=== PATIENT | male | born 2000 | race African-American/Black ===

== ENCOUNTER 2023-01-20 21:29 | Emergency (ER) | payer OTHER ==
[2023-01-20 21:57] VITALS: BP 132/85; PULSE 108; RESP 20; TEMP 97.6
--- NOTE | 2023-01-20 22:07 | ED ---
General Adult HPI - General Source: patient, RN notes reviewed Mode of arrival: ambulatory Limitations: no limitations <Kristi Zhou - Last Filed: 01/20/23 22:06> <Andrey Michel - Last Filed: 01/21/23 03:09> - General Chief complaint: Chest Pain Stated complaint: Chest pain/Congestion Time Seen by Provider: 01/20/23 22:06 - History of Present Illness Initial comments: patient is a 22-year-old male presented ER chief complaint of URI symptoms. Patient reports chest congestion and coughing up phlegm. Patient denies any fevers or chills. (Kristi Zhou) - Related Data Previous Rx's Medication Instructions Recorded Promethazine 6.25MG/5Ml [Phenergan 5 ml PO Q4HR PRN #120 ml 01/21/23 Syrup] Allergies Allergy/AdvReac Type Severity Reaction Status Date / Time No Known Allergies Allergy Verified 01/20/23 21:49 Review of Systems ROS Other: All systems not noted in ROS Statement are negative. <Kristi Zhou - Last Filed: 01/20/23 22:06> ROS Other: All systems not noted in ROS Statement are negative. <Andrey Michel - Last Filed: 01/21/23 03:09> ROS Statement: Those systems with pertinent positive or pertinent negative responses have been documented in the HPI. Past Medical History Additional Past Medical History / Comment(s): CDLS History of Any Multi-Drug Resistant Organisms: None Reported Past Surgical History: No Surgical Hx Reported Past Psychological History: Anxiety Smoking Status: Never smoker Past Alcohol Use History: None Reported Past Drug Use History: None Reported <Kristi Zhou - Last Filed: 01/20/23 22:06> General Exam Limitations: no limitations <Kristi Zhou - Last Filed: 01/20/23 22:06> - General Exam Comments Initial Comments: Visual Physical Exam Vital signs reviewed General: Well-appearing, nontoxic, no acute distress. Head: Normocephalic, atraumatic Eyes: PERRLA, EOMI ENT: Airway patent Chest: Nonlabored breathing Skin: No visual rash, normal skin tone Neuro: Alert and oriented 3 Musculoskeletal: No gross abnormalities (Kristi Zhou) Course Vital Signs 01/20/23 21:45 Temperature 97.6 F Pulse Rate 108 H Respiratory 20 Rate Blood Pressure 132/85 O2 Sat by Pulse 98 Oximetry EKG Findings - EKG Results: EKG: interpreted by ERMD, sinus rhythm, normal axis EKG shows: tachycardia (Rate 116 bpm) - Blocks, [place], Hypertrophy, ST Abn: AV and intraventricular conduction: right bundle branch block (fixed/intermittent, complete/incomplete) (Complete) <Andrey Michel - Last Filed: 01/21/23 03:09> Medical Decision Making <Kristi Zhou - Last Filed: 01/20/23 22:06> - Medical Decision Making I performed the quick note portion of the exam. Electronically signed by Kristi Zhou PA-C (Kristi Zhou) - Lab Data Lab Results 01/20/23 Range/Units 21:55 Influenza Type A (PCR) Not Detected (Not Detectd) Influenza Type B (PCR) Not Detected (Not Detectd) RSV (PCR) Not Detected (Not Detectd) SARS-CoV-2 (PCR) Not Detected (Not Detectd) Disposition <Kristi Zhou - Last Filed: 01/20/23 22:06> Is patient prescribed a controlled substance at d/c from ED?: No <Andrey Michel - Last Filed: 01/21/23 03:09> Clinical Impression: Upper respiratory infection Disposition: HOME SELF-CARE Condition: Good Instructions (If sedation given, give patient instructions): Upper Respiratory Infection (ED) Prescriptions: Promethazine 6.25MG/5Ml [Phenergan Syrup] 5 ml PO Q4HR PRN #120 ml PRN Reason: Cough Referrals: None,Stated [Primary Care Provider] - 1-2 days
--- NOTE | 2023-01-21 02:19 | XR ---
EXAM: XR Chest, 2 Views CLINICAL HISTORY: ITS.REASON XR Reason: congestion TECHNIQUE: Frontal and lateral views of the chest. COMPARISON: No relevant prior studies available. FINDINGS: Lungs: No consolidation or mass. Pleural space: No effusion. Heart: No cardiomegaly. Bones/joints: No acute findings. IMPRESSION: No acute cardiopulmonary process.
[2023-01-21] MEDS ORDERED: PROMETHAZINE HCL 6.25 MG/5 ML CUP PO STA (03:11)
== END 2023-01-21 03:38 | disposition home or self-care (01) ==
LOC: EC 21:29
DX: J06.9 Acute upper respiratory infection, unspecified (principal); Z86.59 Personal history of other mental and behavioral disorders; Z20.822 Contact with and (suspected) exposure to COVID-19
CPT/HCPCS: 71046; 87636; 93005; 99285

== ENCOUNTER 2023-09-02 15:44 | Inpatient (IN) | payer OTHER ==
--- NOTE | 2023-09-02 16:48 | ED ---
General Adult HPI - General Chief complaint: Nausea/Vomiting/Diarrhea Stated complaint: poss infection Time Seen by Provider: 09/02/23 16:22 Source: patient, family, RN notes reviewed Mode of arrival: ambulatory - History of Present Illness Initial comments: 23 year old male presents to the emergency department sent in by dermatology for evaluation. Patient states that he received phototherapy today and following this, patient states that he had burning in his skin. He also reports nausea with an episode of vomiting. Patient states that he has been receiving phototherapy for about 1.5 months. He states that his last treatment about 2 weeks ago he had a similar experience but nothing prior to this. He reports that his symptoms have improved now. Denies fever, chills. Admits to shaking after phototherapy. - Related Data Previous Rx's Medication Instructions Recorded Acetaminophen Tab [Tylenol] 650 mg PO Q6HR PRN tab 09/04/23 Cephalexin [Keflex] 500 mg PO Q6HR 7 Days #14 cap 09/04/23 Doxycycline [Vibramycin] 100 mg PO BID 7 Days #14 capsule 09/04/23 Ibuprofen [Motrin] 400 mg PO Q6HR PRN tab 09/04/23 Allergies Allergy/AdvReac Type Severity Reaction Status Date / Time No Known Allergies Allergy Verified 09/02/23 17:34 Review of Systems ROS Statement: Those systems with pertinent positive or pertinent negative responses have been documented in the HPI. ROS Other: All systems not noted in ROS Statement are negative. Past Medical History Additional Past Medical History / Comment(s): CDLS History of Any Multi-Drug Resistant Organisms: None Reported Past Surgical History: No Surgical Hx Reported Past Psychological History: Anxiety Smoking Status: Never smoker Past Alcohol Use History: None Reported Past Drug Use History: None Reported General Exam Limitations: no limitations General appearance: alert, in no apparent distress Head exam: Present: atraumatic, normocephalic, normal inspection Eye exam: Present: normal appearance, PERRL, EOMI. Absent: scleral icterus, conjunctival injection, periorbital swelling ENT exam: Present: normal exam, mucous membranes moist Neck exam: Present: normal inspection. Absent: tenderness, meningismus, lymphadenopathy Respiratory exam: Present: normal lung sounds bilaterally. Absent: respiratory distress, wheezes, rales, rhonchi, stridor Cardiovascular Exam: Present: normal rhythm, tachycardia, normal heart sounds. Absent: systolic murmur, diastolic murmur, rubs, gallop, clicks GI/Abdominal exam: Present: soft. Absent: distended, tenderness, guarding, rebound, rigid Extremities exam: Present: full ROM, normal capillary refill, pedal edema. Absent: tenderness, joint swelling, calf tenderness Back exam: Present: normal inspection Neurological exam: Present: alert, oriented X3 Psychiatric exam: Present: normal affect, normal mood Skin exam: Present: warm, dry, other (diffuse rash throughout patients body, psoriatic ). Absent: normal color Course Vital Signs 09/02/23 09/02/23 09/02/23 15:56 17:26 21:11 Temperature 98.4 F Pulse Rate 133 H 125 H 118 H Pulse Rate [ Left] Respiratory 20 16 18 Rate Blood Pressure 98/62 128/78 117/69 Blood Pressure [Left Arm] O2 Sat by Pulse 99 100 100 Oximetry 09/03/23 09/03/23 09/03/23 00:05 00:20 01:45 Temperature 100.9 F H 99.1 F Pulse Rate 124 H 111 H 108 H Pulse Rate [ Left] Respiratory 20 18 17 Rate Blood Pressure 103/65 105/60 103/65 Blood Pressure [Left Arm] O2 Sat by Pulse 100 100 100 Oximetry 09/03/23 09/03/23 09/03/23 04:00 05:00 06:00 Temperature 98.9 F Pulse Rate 100 93 96 Pulse Rate [ Left] Respiratory 16 18 16 Rate Blood Pressure 126/64 128/68 123/61 Blood Pressure [Left Arm] O2 Sat by Pulse 98 94 L 97 Oximetry 09/03/23 09/03/23 09/03/23 08:00 08:03 08:42 Temperature 98.5 F Pulse Rate 104 H 102 H Pulse Rate [ 113 H Left] Respiratory 17 18 18 Rate Blood Pressure 126/58 122/70 Blood Pressure 126/60 [Left Arm] O2 Sat by Pulse 93 L 98 97 Oximetry Medical Decision Making - Medical Decision Making Was pt. sent in by a medical professional or institution (, PA, SALON SALES CONSULTANT, urgent care, hospital, or detention...) When possible be specific @ -[Dermatology] Did you speak to anyone other than the patient for history (EMS, parent, family, police, friend...)? What history was obtained from this source @ -[Patients mother provided some of the history for this patient] Did you review nursing and triage notes (agree or disagree)? Why? @ -[I reviewed and agree with nursing and triage notes] Were old charts reviewed (outside hosp., previous admission, EMS record, old EKG, old radiological studies, urgent care reports/EKG's, detention records)? Report findings @ -[Reviewed note from SALON SALES CONSULTANT at Dr. Block's office] Differential Diagnosis (chest pain, altered mental status, abdominal pain women, abdominal pain men, vaginal bleeding, weakness, fever, dyspnea, syncope, heada edith, dizziness, GI bleed, back pain, seizure, CVA, palpatations, mental health, musculoskeletal)? @ -[Differential Weakness: Hypoglycemia, shock, sepsis, hyponatremia, anemia, infection, DE, ETOH, adverse medicine reaction, overdose, stroke, this is not meant to be an all-inclusive list. ] EKG interpreted by me (3pts min.). @ -[ekg at 1951 shows sinus tachycardia, rate 116, ID 127, QRS 88, QT/QTc 320/389 ] X-rays interpreted by me (1pt min.). @ -[None done] CT interpreted by me (1pt min.). @ -[None done] U/S interpreted by me (1pt. min.). @ -[None done] What testing was considered but not performed or refused? (CT, X-rays, U/S, labs)? Why? @ -[None] What meds were considered but not given or refused? Why? @ -[None] Did you discuss the management of the patient with other professionals (professionals i.e. , PA, SALON SALES CONSULTANT, lab, RT, psych nurse, social service worker, milk sampler, teacher, tactical debriefer officer, outsole caser)? Give summary @ -Case discussed with Dr. Watts who is accepting of the admission. Was smoking cessation discussed for >3mins.? @ -[No] Was critical care preformed (if so, how long)? @ -[No] Were there social determinants of health that impacted care today? How? (Homelessness, low income, unemployed, alcoholism, drug addiction, transportation, low edu. Level, literacy, decrease access to med. care, mcc, rehab)? @ -[No] Was there de-escalation of care discussed even if they declined (Discuss DNR or withdrawal of care, Hospice)? DNR status @ -[No] What co-morbidities impacted this encounter? (DM, HTN, Smoking, COPD, CAD, Cancer, CVA, ARF, Chemo, Hep., AIDS, mental health diagnosis, sleep apnea, morbid obesity)? @ -[None] Was patient admitted / discharged? Hospital course, mention meds given and route, prescriptions, significant lab abnormalities, going to OR and other pertinent info. @ -[admitted. Patient presented to the emergency department sent in by dia matology. ] Undiagnosed new problem with uncertain prognosis? @ -[No] Drug Therapy requiring intensive monitoring for toxicity (Heparin, Nitro, Insulin, Cardizem)? @ -[No] Were any procedures done? @ -[No] Diagnosis/symptom? @ -celllulitis Acute, or Chronic, or Acute on Chronic? @ -acute Uncomplicated (without systemic symptoms) or Complicated (systemic symptoms)? @ -uncomplicated Side effects of treatment? @ -[No] Exacerbation, Progression, or Severe Exacerbation? @ -[No] Poses a threat to life or bodily function? How? (Chest pain, [place], DE, pneumonia, PE, COPD, DKA, ARF, appy, cholecystitis, CVA, Diverticulitis, Homicidal, Suicidal, threat to staff... and all critical care pts) @ -[No] - Lab Data Result diagrams: 09/03/23 05:44 09/04/23 06:24 Lab Results 09/02/23 09/02/23 09/02/23 Range/Units 16:47 16:47 16:47 WBC 14.1 H (3.8-10.6) k/uL RBC 5.39 (4.30-5.90) m/uL Hgb 14.7 (13.0-17.5) gm/dL Hct 45.7 (39.0-53.0) % MCV 84.8 (80.0-100.0) fL MCH 27.2 (25.0-35.0) pg MCHC 32.1 (31.0-37.0) g/dL RDW 14.0 (11.5-15.5) % Plt Count 434 (150-450) k/uL MPV 7.0 Neutrophils % 85 % Lymphocytes % 10 % Monocytes % 2 % Eosinophils % 2 % Basophils % 0 % Neutrophils # 12.0 H (1.3-7.7) k/uL Lymphocytes # 1.4 (1.0-4.8) k/uL Monocytes # 0.3 (0-1.0) k/uL Eosinophils # 0.3 (0-0.7) k/uL Basophils # 0.1 (0-0.2) k/uL Hypochromasia Slight PT 11.2 (10.0-12.5) sec INR 1.0 (<1.2) APTT 22.6 (22.0-30.0) sec Sodium (137-145) mmol/L Potassium (3.5-5.1) mmol/L Chloride (98-107) mmol/L Carbon Dioxide (22-30) mmol/L Anion Gap mmol/L BUN (9-20) mg/dL Creatinine (0.66-1.25) mg/dL Est GFR (CKD-EPI)AfAm (>60 ml/min/1.73 sqM) Est GFR (CKD-EPI)NonAf (>60 ml/min/1.73 sqM) Glucose (74-99) mg/dL Estimated Ave Glu mg/dL mg/dL Hemoglobin A1c (<=6.0) % Lactic Ac Sepsis Rflx Plasma Lactic Acid Gilberto (0.7-2.0) mmol/L Calcium (8.4-10.2) mg/dL Magnesium (1.6-2.3) mg/dL Total Bilirubin (0.2-1.3) mg/dL AST (17-59) U/L ALT (4-49) U/L Alkaline Phosphatase (38-126) U/L Total Protein (6.3-8.2) g/dL Albumin (3.5-5.0) g/dL Urine Color Yellow Urine Appearance Clear (Clear) Urine pH 6.0 (5.0-8.0) Ur Specific [place] 1.029 (1.001-1.035) Urine Protein Trace H (Negative) Urine Glucose (UA) Negative (Negative) Urine Ketones Negative (Negative) Urine Blood Negative (Negative) Urine Nitrite Negative (Negative) Urine Bilirubin Negative (Negative) Urine Urobilinogen <2.0 (<2.0) mg/dL Ur Leukocyte Esterase Negative (Negative) Hep Bs Antigen (Nonreactive) Hep Bs Antibody (Negative) Hep Bs Antibody, Quant mIU/mL Hep B Core Total Ab (Nonreactive) Hep C IgG Ab (Nonreactive) TB Test (QFT) Gold Plus (Negative) 09/02/23 09/02/23 09/02/23 Range/Units 16:47 16:47 16:47 WBC (3.8-10.6) k/uL RBC (4.30-5.90) m/uL Hgb (13.0-17.5) gm/dL Hct (39.0-53.0) % MCV (80.0-100.0) fL MCH (25.0-35.0) pg MCHC (31.0-37.0) g/dL RDW (11.5-15.5) % Plt Count (150-450) k/uL MPV Neutrophils % % Lymphocytes % % Monocytes % % Eosinophils % % Basophils % % Neutrophils # (1.3-7.7) k/uL Lymphocytes # (1.0-4.8) k/uL Monocytes # (0-1.0) k/uL Eosinophils # (0-0.7) k/uL Basophils # (0-0.2) k/uL Hypochromasia PT (10.0-12.5) sec INR (<1.2) APTT (22.0-30.0) sec Sodium 136 L (137-145) mmol/L Potassium 4.1 (3.5-5.1) mmol/L Chloride 101 (98-107) mmol/L Carbon Dioxide 26 (22-30) mmol/L Anion Gap 9 mmol/L BUN 10 (9-20) mg/dL Creatinine 1.02 (0.66-1.25) mg/dL Est GFR (CKD-EPI)AfAm >90 (>60 ml/min/1.73 sqM) Est GFR (CKD-EPI)NonAf >90 (>60 ml/min/1.73 sqM) Glucose 104 H (74-99) mg/dL Estimated Ave Glu mg/dL mg/dL Hemoglobin A1c (<=6.0) % Lactic Ac Sepsis Rflx Plasma Lactic Acid Gilberto 3.1 H* (0.7-2.0) mmol/L Calcium 9.7 (8.4-10.2) mg/dL Magnesium 1.1 L (1.6-2.3) mg/dL Total Bilirubin 1.0 (0.2-1.3) mg/dL AST 32 (17-59) U/L ALT 16 (4-49) U/L Alkaline Phosphatase 66 (38-126) U/L Total Protein 7.2 (6.3-8.2) g/dL Albumin 3.9 (3.5-5.0) g/dL Urine Color Urine Appearance (Clear) Urine pH (5.0-8.0) Ur Specific [place] (1.001-1.035) Urine Protein (Negative) Urine Glucose (UA) (Negative) Urine Ketones (Negative) Urine Blood (Negative) Urine Nitrite (Negative) Urine Bilirubin (Negative) Urine Urobilinogen (<2.0) mg/dL Ur Leukocyte Esterase (Negative) Hep Bs Antigen Nonreactive (Nonreactive) Hep Bs Antibody (Negative) Hep Bs Antibody, Quant 3.5 mIU/mL Hep B Core Total Ab Nonreactive (Nonreactive) Hep C IgG Ab Nonreactive (Nonreactive) TB Test (QFT) Gold Plus (Negative) 09/02/23 09/02/23 09/02/23 Range/Units 17:05 17:32 17:34 WBC (3.8-10.6) k/uL RBC (4.30-5.90) m/uL Hgb (13.0-17.5) gm/dL Hct (39.0-53.0) % MCV (80.0-100.0) fL MCH (25.0-35.0) pg MCHC (31.0-37.0) g/dL RDW (11.5-15.5) % Plt Count (150-450) k/uL MPV Neutrophils % % Lymphocytes % % Monocytes % % Eosinophils % % Basophils % % Neutrophils # (1.3-7.7) k/uL Lymphocytes # (1.0-4.8) k/uL Monocytes # (0-1.0) k/uL Eosinophils # (0-0.7) k/uL Basophils # (0-0.2) k/uL Hypochromasia PT (10.0-12.5) sec INR (<1.2) APTT (22.0-30.0) sec Sodium (137-145) mmol/L Potassium (3.5-5.1) mmol/L Chloride (98-107) mmol/L Carbon Dioxide (22-30) mmol/L Anion Gap mmol/L BUN (9-20) mg/dL Creatinine (0.66-1.25) mg/dL Est GFR (CKD-EPI)AfAm (>60 ml/min/1.73 sqM) Est GFR (CKD-EPI)NonAf (>60 ml/min/1.73 sqM) Glucose (74-99) mg/dL Estimated Ave Glu mg/dL 111 mg/dL Hemoglobin A1c 5.5 (<=6.0) % Lactic Ac Sepsis Rflx Y Plasma Lactic Acid Gilberto (0.7-2.0) mmol/L Calcium (8.4-10.2) mg/dL Magnesium (1.6-2.3) mg/dL Total Bilirubin (0.2-1.3) mg/dL AST (17-59) U/L ALT (4-49) U/L Alkaline Phosphatase (38-126) U/L Total Protein (6.3-8.2) g/dL Albumin (3.5-5.0) g/dL Urine Color Urine Appearance (Clear) Urine pH (5.0-8.0) Ur Specific [place] (1.001-1.035) Urine Protein (Negative) Urine Glucose (UA) (Negative) Urine Ketones (Negative) Urine Blood (Negative) Urine Nitrite (Negative) Urine Bilirubin (Negative) Urine Urobilinogen (<2.0) mg/dL Ur Leukocyte Esterase (Negative) Hep Bs Antigen (Nonreactive) Hep Bs Antibody (Negative) Hep Bs Antibody, Quant mIU/mL Hep B Core Total Ab (Nonreactive) Hep C IgG Ab (Nonreactive) TB Test (QFT) Gold Plus Negative (Negative) 09/02/23 09/02/23 Range/Units 19:45 20:26 WBC (3.8-10.6) k/uL RBC (4.30-5.90) m/uL Hgb (13.0-17.5) gm/dL Hct (39.0-53.0) % MCV (80.0-100.0) fL MCH (25.0-35.0) pg MCHC (31.0-37.0) g/dL RDW (11.5-15.5) % Plt Count (150-450) k/uL MPV Neutrophils % % Lymphocytes % % Monocytes % % Eosinophils % % Basophils % % Neutrophils # (1.3-7.7) k/uL Lymphocytes # (1.0-4.8) k/uL Monocytes # (0-1.0) k/uL Eosinophils # (0-0.7) k/uL Basophils # (0-0.2) k/uL Hypochromasia PT (10.0-12.5) sec INR (<1.2) APTT (22.0-30.0) sec Sodium (137-145) mmol/L Potassium (3.5-5.1) mmol/L Chloride (98-107) mmol/L Carbon Dioxide (22-30) mmol/L Anion Gap mmol/L BUN (9-20) mg/dL Creatinine (0.66-1.25) mg/dL Est GFR (CKD-EPI)AfAm (>60 ml/min/1.73 sqM) Est GFR (CKD-EPI)NonAf (>60 ml/min/1.73 sqM) Glucose (74-99) mg/dL Estimated Ave Glu mg/dL mg/dL Hemoglobin A1c (<=6.0) % Lactic Ac Sepsis Rflx Y Plasma Lactic Acid Gilberto 2.3 H* (0.7-2.0) mmol/L Calcium (8.4-10.2) mg/dL Magnesium (1.6-2.3) mg/dL Total Bilirubin (0.2-1.3) mg/dL AST (17-59) U/L ALT (4-49) U/L Alkaline Phosphatase (38-126) U/L Total Protein (6.3-8.2) g/dL Albumin (3.5-5.0) g/dL Urine Color Urine Appearance (Clear) Urine pH (5.0-8.0) Ur Specific [place] (1.001-1.035) Urine Protein (Negative) Urine Glucose (UA) (Negative) Urine Ketones (Negative) Urine Blood (Negative) Urine Nitrite (Negative) Urine Bilirubin (Negative) Urine Urobilinogen (<2.0) mg/dL Ur Leukocyte Esterase (Negative) Hep Bs Antigen (Nonreactive) Hep Bs Antibody (Negative) Hep Bs Antibody, Quant mIU/mL Hep B Core Total Ab (Nonreactive) Hep C IgG Ab (Nonreactive) TB Test (QFT) Gold Plus (Negative) Disposition Clinical Impression: Cellulitis, Sepsis Disposition: ADMITTED IP TO THIS HOSP Condition: Stable Is patient prescribed a controlled substance at d/c from ED?: No
[2023-09-02] MEDS: SODIUM CHLORIDE 0.9% 1,000 ML IV STA (17:01)
[2023-09-02 17:17] LABS: Basophils # (A) 0.1 k/uL (0-0.2); Basophils % (A) 0 %; Eosinophils # (A) 0.3 k/uL (0-0.7); Eosinophils % (A) 2 %; HCT 45.7 % (39.0-53.0); HGB 14.7 gm/dL (13.0-17.5); Hypochromasia Slight; Lymphocytes # (A) 1.4 k/uL (1.0-4.8); Lymphocytes % (A) 10 %; MCH 27.2 pg (25.0-35.0); MCHC 32.1 g/dL (31.0-37.0); MCV 84.8 fL (80.0-100.0); Monocytes # (A) 0.3 k/uL (0-1.0); Monocytes % (A) 2 %; Neutrophils % (A) 85 %; Platelet Count 434 k/uL (150-450); RBC 5.39 m/uL (4.30-5.90); WBC 14.1 k/uL (3.8-10.6)
--- NOTE | 2023-09-02 17:22 | XR ---
EXAMINATION TYPE: XR chest 2V DATE OF EXAM: 09/02/2023 5:10 PM CLINICAL INDICATION:Male, 23 years old with history of Weakness; [facility] COMPARISON: Chest radiographs from 01/21/2023 TECHNIQUE: XR chest 2V Frontal view of the chest. FINDINGS: Lungs/Pleura: There is no evidence of pleural effusion, focal consolidation, or pneumothorax. Pulmonary vascularity: Unremarkable. Heart/mediastinum: Cardiomediastinal silhouette is unremarkable. Musculoskeletal: No acute osseous pathology. IMPRESSION: Haziness to the right heart border, patient is rotated and likely positional. No other acute finding. .
[2023-09-02 17:24] LABS: Appearance,Urine Clear (Clear); Bilirubin,Urine Negative (Negative); Blood,Urine Negative (Negative); Color,Urine Yellow; Glucose,Urine (UA) Negative (Negative); Ketones,Urine Negative (Negative); Leukocyte Esterase,Urine Negative (Negative); Nitrite,Urine Negative (Negative); Protein,Urine Trace (Negative); Specific Gravity,Urine 1.029 (1.001-1.035); Urobilinogen,Urine <2.0 mg/dL (<2.0)
[2023-09-02 17:31] LABS: Partial Thromboplastin Time 22.6 sec (22.0-30.0); Prothrombin Time 11.2 sec (10.0-12.5)
[2023-09-02 17:32] LABS: ALT 16 U/L (4-49); AST 32 U/L (17-59); African American GFR (CKD) >90 (>60 ml/min/1.73 sqM); Albumin 3.9 g/dL (3.5-5.0); Alkaline Phosphatase 66 U/L (38-126); Anion Gap 9 mmol/L; Blood Urea Nitrogen 10 mg/dL (9-20); Calcium 9.7 mg/dL (8.4-10.2); Carbon Dioxide 26 mmol/L (22-30); Chloride 101 mmol/L (98-107); Glucose 104 mg/dL (74-99); Magnesium 1.1 mg/dL (1.6-2.3); Non-African American GFR(CKD) >90 (>60 ml/min/1.73 sqM); Potassium 4.1 mmol/L (3.5-5.1); Sodium 136 mmol/L (137-145); Total Protein 7.2 g/dL (6.3-8.2)
[2023-09-02] MEDS ORDERED: Magnesium Replacement Protocol 1 EACH MISC MISCELLANE PRN (17:34)
[2023-09-02] MEDS: MAGNESIUM SULFATE-D5W PMX 1 GM in DEXTROSE/WATER 1 100ML.BAG IVPB SCH (17:53)
[2023-09-02] MEDS ORDERED: VANCOMYCIN IV PER PHARMACY 1 EACH MISC MISCELLANE PRN (18:02)
[2023-09-02] MEDS: SODIUM CHLORIDE 0.9% 1,000 ML IV ONE (18:38)
[2023-09-02] MEDS: VANCOMYCIN 1,500 MG in SODIUM CHLORIDE 0.9% 500 ML 500 ML IVPB ONE (18:57)
[2023-09-02] MEDS ORDERED: IBUPROFEN 400 MG TAB PO PRN (20:27)
[2023-09-02] MEDS ORDERED: ACETAMINOPHEN TAB 325 MG TAB PO PRN (20:27)
[2023-09-02] MEDS ORDERED: NALOXONE 0.4 MG/ML 1 ML VIAL IV PRN (20:27)
[2023-09-02] MEDS: SODIUM CHLORIDE 0.9% 1,000 ML IV SCH (20:32)
--- NOTE | 2023-09-02 23:16 | P.HPIM ---
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 Collateral history is provided by patient's mother. Per mother, patient is unde rgoing phototherapy for erythrodermic psoriasis since 6 weeks after he had a major flareup in March 2023. Phototherapy has been so far effective in treating the flareup. His phototherapy sessions are scheduled on Mondays, Wednesdays and Fridays. Patient states that after he had therapy on Saturday last week he started endorsing fever, chills and a burning sensation of the skin. He subsequently missed his Saturday and Saturday sessions last week since he was not " feeling well". Patient experienced similar symptoms after getting phototherapy session today. He also reported nausea with an episode of vomiting which was nonbloody. 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 At the time of the interview, patient reports mild chills, but no fever. He states that he often get anxious in the clinical setting and his heart rate increases. Patient has diffuse pruritus but this is not more than how he usually feels. He he however admits that whenever he feels more itchy he likes to scratch the area of itchiness which can often result in excoriations. Patient reports no draining of pus or active bleeding site. Denies shortness of headaches, dizziness, shortness of breath, chest pain, abdominal pain, diarrhea or constipation, numbness weakness or tingling in upper and lower extremities. Chest x-ray in the ER shows no evidence of pleural effusion, focal consolidation or pneumothorax. No acute pulmonary processes. EKG in the ER shows sinus tachycardia with heart rate of 116 bpm. ND interval 127 ms. QTc 389, no prolongation noted. Normal R wave progression. Laboratory evaluation shows lactic acid 2.3 (trended down from 3.1), WBC 14.1 with neutrophil count of 12.0, hemoglobin 14.7, hematocrit 45.7, platelet count 434, sodium 136, potassium 4.1, chloride 101, bicarb 26, glucose 104, magnesium 1.1 UA show trace urine protein. Vitals: Tmax 98.4 F, heart rate 118, respiratory rate 18, BP 117/69, O2 saturation 100% on room air. Review of systems: Pertinent positives and negatives as discussed in HPI, a complete review of systems was performed and all other systems are negative. Social history: Tobacco: None Alcohol: None Recreational drugs: None Travel: None Occupation: None Family History: Noncontributory Physical examination: Vital signs reviewed General: non toxic, no distress, appears at stated age, overweight Derm: Dry, thick, itchy raised skin patches covered with a scale on scalp area, behind both ears, on the dorsal surfaces of both elbows and bilateral lower extremities including knees. Multiple areas of circular and streak-like excoriated skin tobar on abdominal area upper and lower extremities. Some patches on the lower surfaces of the left thigh area are erythematous. No site identified with draining pus or active bleeding. Head: atraumatic, normocephalic, symmetric Eyes: EOMI, no lid lag, anicteric sclera, pupils equal round reactive to light ENT: Nose and ears atraumatic Neck: No cervical lymphadenopathy, trachea midline, supple Mouth: no lip lesion, mucus membranes moist Cardiovascular: S1S2 reg, no murmur, positive dorsalis pedis pulse bilateral, no edema Lungs: CTA bilateral, no rhonchi, no rales, no accessory muscle use Abdominal: soft, nontender to palpation, no guarding Ext: muscle strength 5 out of 5 in all 4 extremities grossly, no gross muscle atrophy, no contractures, Neuro: CN II-XI grossly intact, no gross focal neuro deficits Psych: Alert, oriented, appropriate affect Assessment/Plan: 23-year-old male with a history of Del[place] de Diaz syndrome and chronic psoriasis with flareup was sent to the ER by dermatology for evaluation. #sepsis secondary to Suspected cellulitis secondary to erythrodermic and plaque psoriasis WBC 14.1 with neutrophil count of 12.0 Heart rate 118 Respiratory rate 18 Tmax 98.4 F SIRS criteria: 2 points monitor and trend WBC trend lactic acid, currently trending down from 3.1 ---> 2.3 --> 5.6 follow up blood culture Continue with vancomycin, dosing by pharmacy Continue acetaminophen 650 mg p.o. every 6 hours as needed and ibuprofen 400 mg p.o. every 6 hours as needed for pain control Consult infectious disease s/p 2 L normal saline , continue with 130 cc per hour #Sinus tachycardia, likely secondary to infection Continue cardiac monitoring #Hyponatremia, Sodium 136, unable to establish baseline monitor Na level continue with IVF hydration with normal saline at 130 cc per hour #Hyperglycemia Check HbA1c Started on sliding scale short acting insulin #Hypomagnesium Magnesium per protocol as needed Continue monitor magnesium level DVT prophylaxis: Lovenox 40 mg subcu daily The patient is admitted with an anticipated less than 2 midnight stay for evaluation of cellulitis CODE STATUS: Full Discussed with: Patient and mother Anticipated discharge place: Home Past Medical History Additional Past Medical History / Comment(s): CDLS History of Any Multi-Drug Resistant Organisms: None Reported Past Surgical History: No Surgical Hx Reported Past Psychological History: Anxiety Smoking Status: Never smoker Past Alcohol Use History: None Reported Past Drug Use History: None Reported Medications and Allergies Home Medications Medication Instructions Recorded Confirmed Type No Known Home Medications 09/02/23 09/02/23 History Allergies Allergy/AdvReac Type Severity Reaction Status Date / Time No Known Allergies Allergy Verified 09/02/23 17:34 Physical Exam Vitals: Vital Signs Temp Pulse Resp BP Pulse Ox 09/02/23 21:11 118 H 18 117/69 100 09/02/23 17:26 125 H 16 128/78 100 09/02/23 15:56 98.4 F 133 H 20 98/62 99 Intake and Output 09/02/23 09/02/23 09/03/23 14:59 22:59 06:59 Other: Weight 79.379 kg Results CBC & Chem 7: 09/02/23 16:47 09/02/23 16:47 Labs: Abnormal Lab Results - Last 24 Hours (Table) 09/02/23 09/02/23 09/02/23 Range/Units 16:47 16:47 16:47 WBC 14.1 H (3.8-10.6) k/uL Neutrophils # 12.0 H (1.3-7.7) k/uL Sodium 136 L (137-145) mmol/L Glucose 104 H (74-99) mg/dL Plasma Lactic Acid Gilberto (0.7-2.0) mmol/L Magnesium 1.1 L (1.6-2.3) mg/dL Urine Protein Trace H (Negative) 09/02/23 09/02/23 Range/Units 16:47 19:45 WBC (3.8-10.6) k/uL Neutrophils # (1.3-7.7) k/uL Sodium (137-145) mmol/L Glucose (74-99) mg/dL Plasma Lactic Acid Gilberto 3.1 H* 2.3 H* (0.7-2.0) mmol/L Magnesium (1.6-2.3) mg/dL Urine Protein (Negative) Assessment and Plan Assessment: I have seen and evaluated the patient today. I Discussed the case with the resid ent and agree with the resident's findings I edited the assessment and plan as necessary as documented in the resident's note.
[2023-09-03] MEDS: KETOROLAC 15 MG/ML 1 ML VIAL IVP PRN (00:11)
[2023-09-03] MEDS: ENOXAPARIN 40 MG/0.4 ML SYRINGE SQ STA (00:23)
[2023-09-03] MEDS ORDERED: VANCOMYCIN IV PER PHARMACY 1 EACH MISC MISCELLANE PRN (02:19)
[2023-09-03 02:31] LABS: Hepatitis B Surface Antigen Nonreactive (Nonreactive); Hepatitis C IgG Antibody Nonreactive (Nonreactive)
[2023-09-03 03:56] LABS: Hepatitis B Surface AB- Quant 3.5 mIU/mL
[2023-09-03] MEDS: VANCOMYCIN 1,250 MG in SODIUM CHLORIDE 0.9% 250 ML IVPB SCH ×2 (06:51→15:09)
[2023-09-03] MEDS: INSULIN ASPART (NovoLOG) 100 UNIT/ML VIAL SQ SCH (09:09)
--- NOTE | 2023-09-03 14:51 | P.PN ---
Subjective Progress Note Date: 09/03/23 Subjective: Patient seen at bedside. No significant overnight events. Pertinent positives and negatives discussed above, a complete review of systems was preformed and all the other sytems were negative. Vitals Signs Reveiwed. General: non toxic, no distress, appears at stated age, overweight Derm: Dry, thick, itchy raised skin patches covered with a scale on scalp area, behind both ears, on the dorsal surfaces of both elbows and bilateral lower extremities including knees. Multiple areas of circular and streak-like excoriated skin tobar on abdominal area upper and lower extremities. Some patches on the lower surfaces of the left thigh area are erythematous. No site identified with draining pus or active bleeding. Head: atraumatic, normocephalic, symmetric Eyes: EOMI, no lid lag, anicteric sclera, pupils equal round reactive to light ENT: Nose and ears atraumatic Neck: No cervical lymphadenopathy, trachea midline, supple Mouth: no lip lesion, mucus membranes moist Cardiovascular: S1S2 reg, no murmur, positive dorsalis pedis pulse bilateral, no edema Lungs: CTA bilateral, no rhonchi, no rales, no accessory muscle use Abdominal: soft, nontender to palpation, no guarding Ext: muscle strength 5 out of 5 in all 4 extremities grossly, no gross muscle a trophy, no contractures, Neuro: CN II-XI grossly intact, no gross focal neuro deficits Psych: Alert, oriented, appropriate affect Data Reveiwed Today: Patient Labs: Pending labs to for today Imaging: No new imaging Assesment and Plan: Assessment/Plan: 23-year-old male with a history of [place] de Diaz syndrome and chronic psoriasis with flareup was sent to the ER by dermatology for evaluation. Patient is being worked up for sepsis secondary to suspected cellulitis. Sepsis secondary to Suspected cellulitis secondary to erythrodermic and plaque psoriasis Difficult to distinguish potential cellulitis from psoriasis as the psoriasis encapsulate the majority of the lower extremities in particular the right lower extremity where the suspected cellulitis was first seen, will follow-up with ID for further recommendations. WBC 14.1 with neutrophil count of 12.0 Respiratory rate 18 SIRS criteria: Vitals within normal limits, pending new labs today for WBC monitor and trend WBC Lactic acid down trended, now 1.3 Pending preliminary blood culture results Continue vancomycin 1250 mg sodium chloride 0.9% 250 mL IVPB every 8 hours Continue acetaminophen 650 mg p.o. every 6 hours as needed and ibuprofen 400 mg p.o. every 6 hours as needed for pain control Consult infectious disease s/p 2 L normal saline , continue with 130 cc per hour Sinus tachycardia, likely secondary to infection Continue cardiac monitoring Hyponatremia, Sodium 136, unable to establish baseline monitor Na level continue with IVF hydration with normal saline at 130 cc per hour Hyperglycemia Check HbA1c Will continue to monitor glucose (104) on admission Hypomagnesium Magnesium per protocol as needed Continue monitor magnesium level F NS 1000 mL IV 130 MLS per hour E magnesium N regular diet A normally ambulates without assistance at home. DVT ppx: Lovenox 40 SQ Code Status: Full code Anticipated discharge place: Pending clinical course Anticipated discharge time: Pending clinical course I have seen and evaluated the patient today. Discussed with the resident and agree with the residents subjective and objective as documented in the resident's note. The assessment and plan was discussed and outlined as below. Patient reports improvement in erythema. Back to baseline per patient. Sepsis secondary to cellulitis in the setting of plaque psoriasis: Vancomycin dosed per pharmacy. Decrease NS to 75 cc/hr. Telemetry monitoring. ID consulted. Follow BCx. Hyponatremia: IV hydration as above. Repeat labs tomorrow. HypoMag: Status post 4g mag sulfate IV. Repeat labs tomorrow. Objective - Vital Signs Vital signs: Vital Signs Temp 98.9 F 09/03/23 06:00 Pulse 96 09/03/23 06:00 Resp 16 09/03/23 06:00 BP 123/61 09/03/23 06:00 Pulse Ox 97 09/03/23 06:00 FiO2 Intake & Output 09/02/23 09/02/23 09/03/23 06:59 18:59 06:59 Weight 79.379 kg - Labs CBC & Chem 7: 09/02/23 16:47 09/02/23 16:47 Labs: Abnormal Lab Results - Last 24 Hours (Table) 09/02/23 09/02/23 09/02/23 Range/Units 16:47 16:47 16:47 WBC 14.1 H (3.8-10.6) k/uL Neutrophils # 12.0 H (1.3-7.7) k/uL Sodium 136 L (137-145) mmol/L Glucose 104 H (74-99) mg/dL Plasma Lactic Acid Gilberto (0.7-2.0) mmol/L Magnesium 1.1 L (1.6-2.3) mg/dL Urine Protein Trace H (Negative) 09/02/23 09/02/23 09/02/23 Range/Units 16:47 19:45 22:44 WBC (3.8-10.6) k/uL Neutrophils # (1.3-7.7) k/uL Sodium (137-145) mmol/L Glucose (74-99) mg/dL Plasma Lactic Acid Gilberto 3.1 H* 2.3 H* 5.6 H* (0.7-2.0) mmol/L Magnesium (1.6-2.3) mg/dL Urine Protein (Negative) 09/03/23 Range/Units 02:42 WBC (3.8-10.6) k/uL Neutrophils # (1.3-7.7) k/uL Sodium (137-145) mmol/L Glucose (74-99) mg/dL Plasma Lactic Acid Gilberto 2.6 H* (0.7-2.0) mmol/L Magnesium (1.6-2.3) mg/dL Urine Protein (Negative)
[2023-09-03 15:38] LABS: Basophils # (A) 0.1 k/uL (0-0.2); Basophils % (A) 1 %; Eosinophils # (A) 0.3 k/uL (0-0.7); Eosinophils % (A) 2 %; HCT 40.7 % (39.0-53.0); HGB 12.4 gm/dL (13.0-17.5); Hypochromasia Marked; Lymphocytes # (A) 1.3 k/uL (1.0-4.8); Lymphocytes % (A) 11 %; MCH 27.5 pg (25.0-35.0); MCHC 30.5 g/dL (31.0-37.0); Mean Platelet Volume 9.1; Monocytes # (A) 0.5 k/uL (0-1.0); Monocytes % (A) 5 %; Neutrophils # (A) 9.3 k/uL (1.3-7.7); Neutrophils % (A) 80 %; Platelet Count 305 k/uL (150-450); RBC 4.52 m/uL (4.30-5.90); RDW 14.5 % (11.5-15.5); WBC 11.7 k/uL (3.8-10.6)
--- NOTE | 2023-09-03 22:19 | P.CONS ---
History of Present Illness - Reason for Consult Consult date: 09/03/23 Questionable cellulitis, SIRS criteria Requesting physician: Nata De Jesus - Chief Complaint Fever vomiting x 1 day - History of Present Illness Patient is a 23-year-old -[place] male with a past medical history significant for anxiety chronic psoriasis since currently undergoing phototherapy for the erythematous psoriasis for the last 6 weeks which is done on Mondays and Saturday apparently after his therapy on Saturday patient started having a fever chills and a burning sensation to the skin for the same reason the patient skipped his therapy on Saturday and Saturday when the patient went for his symptoms yesterday that is the day of presentation to the hospital patient have similar symptoms of fever burning sensation to the skin and an episode of vomiting patient was subsequent advised to go to the ER for further evaluation patient denies having any headache or URI symptoms denies any chest pain no shortness with occasional cough he was complaining of some abdominal pain to the lower abdominal area which apparently has resolved the patient did have bowel movement and no further vomiting denies any burning or frequency of urine has been complaining of some burning pain to the skin area that seem to have decreased in intensity patient on presentation to the hospital to have fever 100.9 F patient was tachycardic but not hypotensive or hypoxic and no need for supplemental oxygen patient did have a white count of 14.1 which is down to 11.7 creatinine 1.02 lactic acid was 5.6 down to 1.3 urine has been negative hepatitis B and C has been negative patient did have a chest x-ray haziness of the right heart border no acute finding patient has been empirically treated with vancomycin Review of Systems Positive point and negatives has been mentioned in the HPI, complete review of systems was performed and all other systems are negative Past Medical History Additional Past Medical History / Comment(s): CDLS History of Any Multi-Drug Resistant Organisms: None Reported Past Surgical History: No Surgical Hx Reported Past Psychological History: Anxiety Smoking Status: Never smoker Past Alcohol Use History: None Reported Past Drug Use History: None Reported Medications and Allergies Home Medications Medication Instructions Recorded Confirmed Type No Known Home Medications 09/02/23 09/02/23 History Allergies Allergy/AdvReac Type Severity Reaction Status Date / Time No Known Allergies Allergy Verified 09/02/23 17:34 Physical Exam Vitals: Vital Signs Temp Pulse Pulse Pulse Resp BP BP 09/03/23 09:50 108 H 18 09/03/23 08:42 102 H 18 122/70 09/03/23 08:03 104 H 18 126/58 09/03/23 08:00 98.5 F 113 H 17 126/60 09/03/23 06:00 98.9 F 96 16 123/61 09/03/23 05:00 93 18 128/68 09/03/23 04:00 100 16 126/64 09/03/23 01:45 99.1 F 108 H 17 103/65 09/03/23 00:20 111 H 18 105/60 09/03/23 00:05 100.9 F H 124 H 20 103/65 09/02/23 21:11 118 H 18 117/69 09/02/23 17:26 125 H 16 128/78 09/02/23 15:56 98.4 F 133 H 20 98/62 Pulse Ox 09/03/23 09:50 09/03/23 08:42 97 09/03/23 08:03 98 09/03/23 08:00 93 L 09/03/23 06:00 97 09/03/23 05:00 94 L 09/03/23 04:00 98 09/03/23 01:45 100 09/03/23 00:20 100 09/03/23 00:05 100 09/02/23 21:11 100 09/02/23 17:26 100 09/02/23 15:56 99 Intake and Output 09/02/23 09/03/23 09/03/23 22:59 06:59 14:59 Other: Weight 79.379 kg 79.379 kg GENERAL DESCRIPTION: Young male lying in bed, no distress. No tachypnea or acc essory muscle of respiration use. HEENT: Shows Pallor , no scleral icterus. Oral mucous membrane is dry. No pharyngeal erythema or thrush NECK: Trachea central, no thyromegaly. LUNGS: Unlabored breathing. Clear to auscultation anteriorly. No wheeze or crackle. HEART: S1, S2, regular rate and rhythm. No loud murmur ABDOMEN: Soft, no tenderness , EXTREMITIES: No edema of feet. SKIN: Patient did have multiple skin plaques throughout his body from his psoriasis some erythema has been noticed and warmth to the skin NEUROLOGICAL: The patient is awake, alert, oriented x3, mood and affect normal. Results CBC & Chem 7: 09/03/23 05:44 09/02/23 16:47 Labs: Abnormal Lab Results - Last 24 Hours (Table) 09/02/23 09/02/23 09/02/23 Range/Units 16:47 16:47 16:47 WBC 14.1 H (3.8-10.6) k/uL Neutrophils # 12.0 H (1.3-7.7) k/uL Sodium 136 L (137-145) mmol/L Glucose 104 H (74-99) mg/dL Plasma Lactic Acid Gilberto (0.7-2.0) mmol/L Magnesium 1.1 L (1.6-2.3) mg/dL Urine Protein Trace H (Negative) 09/02/23 09/02/23 09/02/23 Range/Units 16:47 19:45 22:44 WBC (3.8-10.6) k/uL Neutrophils # (1.3-7.7) k/uL Sodium (137-145) mmol/L Glucose (74-99) mg/dL Plasma Lactic Acid Gilberto 3.1 H* 2.3 H* 5.6 H* (0.7-2.0) mmol/L Magnesium (1.6-2.3) mg/dL Urine Protein (Negative) 09/03/23 Range/Units 02:42 WBC (3.8-10.6) k/uL Neutrophils # (1.3-7.7) k/uL Sodium (137-145) mmol/L Glucose (74-99) mg/dL Plasma Lactic Acid Gilberto 2.6 H* (0.7-2.0) mmol/L Magnesium (1.6-2.3) mg/dL Urine Protein (Negative) Assessment and Plan (1) Cellulitis Current Visit: Yes Status: Acute Code(s): L03.90 - CELLULITIS, UNSPECIFIED SNOMED Code(s): 944729733 (2) Sepsis Current Visit: Yes Status: Acute Code(s): A41.9 - SEPSIS, UNSPECIFIED ORGANISM SNOMED Code(s): 32796349 Plan: 1patient presented to hospital with sepsis in this patient who did have fever elevated white count and this patient did have history of erythematous psoriasis undergoing phototherapy now presented with burning of the skin did have some erythema and warmth to the skin concerning for cellulitis likely from gram- positive skin harris however the patient also having some abdominal pain and did have an episode of vomiting and also mention constipation underlying abdominal soft mild tenderness noted. 2we will recommend obtaining CT of abdominal pelvis with contrast to rule out any intra-abdominal pathology. 3with the patient fever white respond to vancomycin to continue while waiting for the culture to finalize. Mother at the bedside questions were sought and answered. We will follow on clinical condition and cultures to further adjust medication if needed Thank you for this consultation we will follow the patient along with you Dictation was produced using [employer] dictation software. please excuse any grammatical, word or spelling errors. Time with Patient: Greater than 30
[2023-09-04 06:53] VITALS: BP 115/74; PULSE 96; RESP 16; TEMP 98.2
[2023-09-04] MEDS: IOPAMIDOL CONTRAST (ORAL USE) VIAL PO PRN (09:21)
[2023-09-04] MEDS: VANCOMYCIN TROUGH DUE 1 EACH MISC MISCELLANE ONE (10:15)
[2023-09-04 10:49] LABS: ALT 13 U/L (10-49); AST 21 U/L (14-35); Albumin 3.6 g/dL (3.8-4.9); Albumin/Globulin Ratio 1.29 Ratio (1.60-3.17); Alkaline Phosphatase 61 U/L (41-126); BUN/Creat Ratio 4.73 Ratio (12.00-20.00); Blood Urea Nitrogen 5.2 mg/dL (9.0-27.0); Calcium 8.9 mg/dL (8.7-10.3); Carbon Dioxide 24.5 mmol/L (21.6-31.8); Chloride 106 mmol/L (96-109); Globulin 2.8 g/dL (1.6-3.3); Glucose 97 mg/dL (70-110); Potassium 4.6 mmol/L (3.5-5.5); Sodium 141 mmol/L (135-145); Total Bilirubin 0.4 mg/dL (0.3-1.2); Total Protein 6.4 g/dL (6.2-8.2)
--- NOTE | 2023-09-04 10:58 | CT ---
EXAMINATION TYPE: CT abdomen pelvis w con CT DLP: 784 mGycm, Automated exposure control for dose reduction was used. DATE OF EXAM: 09/04/2023 10:48 AM COMPARISON: None CLINICAL INDICATION:Male, 23 years old with history of Fever abdominal pain and vomiting; Fever, abdo suzy pain, and vomiting. TECHNIQUE: Standard CT of the abdomen and pelvis following the administration of 100 cc of Isovue 3 00 IV contrast material and oral contrast. Coronal and sagittal reformats were performed. FINDINGS: LOWER CHEST: Unremarkable ABDOMEN LIVER: Focal fatty infiltration adjacent to falciform ligament. GALLBLADDER AND BILE DUCTS: Unremarkable. PANCREAS: Unremarkable. SPLEEN: Unremarkable. ADRENAL GLANDS: Unremarkable. KIDNEYS AND URETERS: No evidence of hydronephrosis or renal calculus. The kidneys enhance symmetrical ly. Contrast is demonstrated within both collecting systems on the delayed phase. PELVIS BLADDER: Unremarkable REPRODUCTIVE: Unremarkable. ABDOMEN & PELVIS STOMACH AND BOWEL: Stomach and duodenum are unremarkable. No focal bowel wall thickening or surroundi ng inflammatory changes. Moderate distal colonic stool burden. The appendix is within normal limits. Enteric contrast reaches the proximal colon. No evidence of bowel obstruction. PERITONEUM: No evidence of pneumoperitoneum or free fluid. No evidence for organized fluid collection . VASCULATURE: No evidence of aortic aneurysm. MUSCULOSKELETAL: No acute osseous abnormalities. Multilevel Schmorl's nodes. LYMPH NODES: Bilateral enlarged external iliac chain lymph nodes with largest on the right measuring up to 1.2 cm and largest on the left measuring up to 1.1 cm. Few shotty prominent periaortic lymph no radha are identified. Bilateral enlarged inguinal lymph nodes with largest on the right measuring up to 1.8 cm. Largest on the left measures up to 1.3 cm. SOFT TISSUE/ABDOMINAL WALL: Mild diffuse anasarca. IMPRESSION: 1. Nonspecific enlarged bilateral external iliac chain and inguinal lymph nodes. May be reactive vers us other etiologies. 2. Moderate distal colonic stool burden. 3. No CT evidence for other significant abnormality.
--- NOTE | 2023-09-04 14:07 | P.DS ---
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 Collateral history is provided by patient's mother. Per mother, patient is undergoing phototherapy for erythrodermic psoriasis since 6 weeks after he had a major flareup in March 2023. Phototherapy has been so far effective in treating the flareup. His phototherapy sessions are scheduled on Mondays, Wednesdays and Fridays. Patient states that after he had therapy on Saturday last week he started endorsing fever, chills and a burning sensation of the skin. He subsequently missed his Saturday and Saturday sessions last week since he was not " feeling well". Patient experienced similar symptoms after getting phototherapy session today. He also reported nausea with an episode of vomiting which was nonbloody. In the ED he underwent extensive evaluation. BP 98/62, HR 133, Tmax 100.9F, 100% on RA. CBC, Coag panel, CMP significant for WBC 14.1, Na 136, glu 104. Lactic acid 5.6. Mag 1.1. UA trace protein. Hep panel negative. CXR haziness of the right heart border. EKG sinus tachycardia. Patient was started on Vancomycin, IV hydration and admitted for treatment of cellulitis. ID consulted, recommended CT AP which showed enlarged external iliac lymph nodes. 09/03 Patient was seen and examined. No complaints wanting to go home. ID recomm ended Keflex and Doxycycline x 7 days. Follow up with PCP within 1-[address] Light within 1 week of discharge. General: non toxic, no distress, appears at stated age Derm: warm, dry, psoriatric plaques bilateral lower extremities Head: atraumatic, normocephalic, symmetric Eyes: EOMI, no lid lag, anicteric sclera Mouth: no lip lesion, mucus membranes moist Cardiovascular: S1S2 reg, no murmur Lungs: CTA bilateral, no rhonchi, no rales , no accessory muscle use Ext: no gross muscle atrophy, no edema, no contractures Neuro: no focal neuro deficits Psych: Alert, oriented, appropriate affect Discharge Diagnosis: Sepsis secondary to cellulitis in the setting of plaque psoriasis Hyponatremia HypoMag This complex discharge took 35 minutes to complete. Patient Condition at Discharge: Stable Plan - Discharge Summary Discharge Rx Participant: Yes New Discharge Prescriptions: New Cephalexin [Keflex] 500 mg PO Q6HR 7 Days #14 cap Ibuprofen [Motrin] 400 mg PO Q6HR PRN tab PRN Reason: Mild Pain Or Fever > 100.5 Acetaminophen Tab [Tylenol] 650 mg PO Q6HR PRN tab PRN Reason: Mild Pain Or Fever > 100.5 Doxycycline [Vibramycin] 100 mg PO BID 7 Days #14 capsule Discharge Medication List Acetaminophen Tab [Tylenol] 650 mg PO Q6HR PRN tab 09/04/23 [Rx] Cephalexin [Keflex] 500 mg PO Q6HR 7 Days #14 cap 09/04/23 [Rx] Doxycycline [Vibramycin] 100 mg PO BID 7 Days #14 capsule 09/04/23 [Rx] Ibuprofen [Motrin] 400 mg PO Q6HR PRN tab 09/04/23 [Rx] Follow up Appointment(s)/Referral(s): None,Stated [Primary Care Provider] - 1-2 days Delfin Light MD [STAFF PHYSICIAN] - 1 Week (office will call with appointment time) Patient Instructions/Handouts: Cellulitis (GEN) Activity/Diet/Wound Care/Special Instructions: Follow up with PCP for resolution of external iliac lymphadenopathy seen on CT AP Discharge Disposition: HOME SELF-CARE
[2023-09-04] MEDS ORDERED: VANCOMYCIN 1,250 MG in SODIUM CHLORIDE 0.9% 250 ML IVPB SCH (20:00)
--- NOTE | 2023-09-05 13:13 | P.PN ---
Subjective Progress Note Date: 09/04/23 Principal diagnosis: Reason for follow-up is fever and cellulitis Patient is a 23-year-old -[place] male with a past medical history significant for anxiety chronic psoriasis since currently undergoing phototherapy for the erythematous psoriasis presented to hospital with fever burning of the skin after his phototherapy patient was febrile and has been diagnosed with cellulitis patient did have a CT abdominal pelvis did not show any acute abnormality tissues and large bilateral external iliac chain and inguinal lymph nodes. On today's evaluation that is 09/04/2023, Patient is afebrile patient is currently on room air and denies having any shortness of breath, the patient denies any chest pain or cough, the patient denies any nausea vomiting did not have any abdominal pain and no diarrhea patient mention overall burning to the skin has improved feeling better wants to go home. Patient white count is down to 11.7 creatinine is 1.1 blood culture has been negative Objective - Vital Signs Vital signs: Vital Signs Temp 98.2 F 09/04/23 06:51 Pulse 96 09/04/23 06:51 Resp 16 09/04/23 09:23 BP 115/74 09/04/23 06:51 Pulse Ox 100 09/04/23 06:51 FiO2 Intake & Output 09/03/23 09/04/23 09/04/23 18:59 06:59 18:59 Intake Total 1150 Balance 1150 Weight 79.379 kg Intake: Intake, IV Titration 1150 Amount Sodium Chloride 0.9% 1, 900 000 ml @ 75 mls/hr IV . [id number] KAMALA Rx#:[id number] Vancomycin 1,250 mg In 250 Sodium Chloride 0.9% 250 ml @ 125 mls/hr IVPB Q8H KAMALA Rx#:[id number] Other: # Voids 2 12 1 - Exam GENERAL DESCRIPTION: Young male lying in bed in no distress RESPIRATORY SYSTEM: Unlabored breathing , decreased breath sounds at bases HEART: S1 S2 regular rate and rhythm , ABDOMEN: Soft , no tenderness EXTREMITIES: Bilateral lower extremity with extensive plaque psoriasis no purulent drainage - Labs CBC & Chem 7: 09/03/23 05:44 09/04/23 06:24 Labs: Abnormal Lab Results - Last 24 Hours (Table) 09/03/23 09/04/23 Range/Units 05:44 06:24 WBC 11.7 H (3.8-10.6) k/uL Hgb 12.4 L (13.0-17.5) gm/dL MCHC 30.5 L (31.0-37.0) g/dL Neutrophils # 9.3 H (1.3-7.7) k/uL BUN 5.2 L (9.0-27.0) mg/dL BUN/Creatinine Ratio 4.73 L (12.00-20.00) Ratio Albumin 3.6 L (3.8-4.9) g/dL Albumin/Globulin Ratio 1.29 L (1.60-3.17) Ratio Microbiology - Last 24 Hours (Table) 09/02/23 21:45 Blood Culture - Preliminary Blood 09/02/23 21:30 Blood Culture - Preliminary Blood Assessment and Plan (1) Cellulitis Status: Acute Code(s): L03.90 - CELLULITIS, UNSPECIFIED SNOMED Code(s): 077923172 (2) Sepsis Status: Acute Code(s): A41.9 - SEPSIS, UNSPECIFIED ORGANISM SNOMED Code(s): 81260498 Plan: 1patient presented to hospital with sepsis in this patient who did have fever elevated white count and this patient did have history of erythematous psoriasis undergoing phototherapy now presented with burning of the skin did have some erythema and warmth to the skin concerning for cellulitis likely from gram- positive skin harris however the patient also having some abdominal pain and did have an episode of vomiting and also mention constipation underlying abdominal soft mild tenderness noted. 2patient did have CT of abdominal pelvis with contrast did not show any intra- abdominal pathology however enlarged bilateral inguinal lymph nodes more likely related to his underlying cellulitis. 3patient seem to have shown clinical movements wants to go home we will recommend a 10-day course of oral doxycycline and Keflex on discharge this was discussed with admitting team working on discharge Dictation was produced using [employer] dictation software. please excuse any grammatical, word or spelling errors. Time with Patient: Less than 30
== END 2023-09-04 13:20 | disposition home or self-care (01) | DRG 720 ==
LOC: EC 15:44 → 4SSUR 20:28 → 3SCARD 09-03 00:05 → 4SSUR 09-03 07:48
PROVIDERS: ADMIT Internal Medicine; ATTEND Internal Medicine
DX: A41.9 Sepsis, unspecified organism (principal); Q87.19 Other congenital malformation syndromes predominantly associated with short stature; E87.1 Hypo-osmolality and hyponatremia; L40.0 Psoriasis vulgaris; E83.42 Hypomagnesemia; L40.8 Other psoriasis; L29.9 Pruritus, unspecified; L03.115 Cellulitis of right lower limb; R73.9 Hyperglycemia, unspecified
CPT/HCPCS: 36415; 71046; 74177; 80053; 80202; 81003; 83036; 83605; 83735; 85025; 85610; 85730; 86480; 86704; 86706; 86803; 87040; 87340; 93005; 96361; 96365; 96366; 96368; 96375; 99285

== ENCOUNTER 2024-05-30 12:12 | Emergency (ER) | payer OTHER ==
[2024-05-30 12:23] VITALS: RESP 17
--- NOTE | 2024-05-30 12:53 | ED ---
Wound/Laceration HPI - General Chief Complaint: Wound/Laceration Stated Complaint: R Hand Lac Time Seen by Provider: 05/30/24 12:26 Source: patient, RN notes reviewed Mode of arrival: ambulatory Limitations: no limitations - History of Present Illness Initial Comments: 24-year-old male presenting to the emergency department for complaint of a right second digit laceration. Patient states that he cut his finger while opening a can of soup. He denies paresthesias loss of range of motion. He is unaware when his last tetanus vaccination was. No other acute complaints at this time. - Related Data Previous Rx's Medication Instructions Recorded Acetaminophen Tab [Tylenol] 650 mg PO Q6HR PRN tab 09/04/23 Cephalexin [Keflex] 500 mg PO Q6HR 7 Days #14 cap 09/04/23 Doxycycline [Vibramycin] 100 mg PO BID 7 Days #14 capsule 09/04/23 Ibuprofen [Motrin] 400 mg PO Q6HR PRN tab 09/04/23 Cephalexin [Keflex] 500 mg PO Q6HR #40 cap 05/30/24 Allergies Allergy/AdvReac Type Severity Reaction Status Date / Time No Known Allergies Allergy Verified 05/30/24 12:23 Review of Systems ROS Statement: Those systems with pertinent positive or pertinent negative responses have been documented in the HPI. ROS Other: All systems not noted in ROS Statement are negative. Past Medical History Additional Past Medical History / Comment(s): CDLS History of Any Multi-Drug Resistant Organisms: None Reported Past Surgical History: No Surgical Hx Reported Past Psychological History: Anxiety Smoking Status: Never smoker Past Alcohol Use History: None Reported Past Drug Use History: None Reported General Exam Limitations: no limitations General appearance: alert, in no apparent distress ENT exam: Present: normal exam, mucous membranes moist Neck exam: Present: normal inspection. Absent: tenderness, meningismus, lymphadenopathy Respiratory exam: Present: normal lung sounds bilaterally. Absent: respiratory distress, wheezes, rales, rhonchi, stridor Cardiovascular Exam: Present: regular rate, normal rhythm, normal heart sounds. Absent: systolic murmur, diastolic murmur, rubs, gallop, clicks GI/Abdominal exam: Present: soft, normal bowel sounds. Absent: distended, tenderness, guarding, rebound, rigid Right Hand Wrist exam: Present: laceration (Second digit 1 inch x 0.25 inch skin avulsion.) Neuro motor exam: Present: wrist extension intact, thumb opposition intact, thumb IP flexion intact Vascular: Present: normal capillary refill, radial pulse (2+). Absent: vascular compromise Neurological exam: Present: alert, oriented X3, CN II-XII intact Course Vital Signs 05/30/24 12:19 Temperature 97.3 F L Pulse Rate 104 H Respiratory 17 Rate Blood Pressure 139/91 O2 Sat by Pulse 97 Oximetry Medical Decision Making - Medical Decision Making Was pt. sent in by a medical professional or institution (, [facility], [employer]ER, urgent care, hospital, or intermediate...) When possible be specific @ -No Did you speak to anyone other than the patient for history (EMS, parent, family, police, friend...)? What history was obtained from this source @ -No Did you review nursing and triage notes (agree or disagree)? Why? @ -I reviewed and agree with nursing and triage notes Were old charts reviewed (outside hosp., previous admission, EMS record, old EKG, old radiological studies, urgent care reports/EKG's, intermediate records)? Report findings @ -No old charts were reviewed Differential Diagnosis (chest pain, altered mental status, abdominal pain women, abdominal pain men, vaginal bleeding, weakness, fever, dyspnea, syncope, headache, dizziness, GI bleed, back pain, seizure, CVA, palpatations, mental health, musculoskeletal)? @ -Skin avulsion, laceration, this list is not all inclusive EKG interpreted by me (3pts min.). @ -None X-rays interpreted by me (1pt min.). @ -None done CT interpreted by me (1pt min.). @ -None done U/S interpreted by me (1pt. min.). @ -None done What testing was considered but not performed or refused? (CT, X-rays, U/S, labs)? Why? @ -None What meds were considered but not given or refused? Why? @ -None Did you discuss the management of the patient with other professionals (professionals i.e. IZZY Maxwell, [employer] DES[employer]ER, lab, RT, psych nurse, rn social services, marketing technology specialist, teacher, airport operations officer, case loader operator)? Give summary @ -No Was smoking cessation discussed for >3mins.? @ -No Was critical care preformed (if so, how long)? @ -No Were there social determinants of health that impacted care today? How? (Homelessness, low income, unemployed, alcoholism, drug addiction, transportation, low edu. Level, literacy, decrease access to med. care, alf, rehab)? @ -No Was there de-escalation of care discussed even if they declined (Discuss DNR or withdrawal of care, Hospice)? DNR status @ -No What co-morbidities impacted this encounter? (DM, HTN, Smoking, COPD, CAD, Cancer, CVA, ARF, Chemo, Hep., AIDS, mental health diagnosis, sleep apnea, morbid obesity)? @ -None Was patient admitted / discharged? Hospital course, mention meds given and route, prescriptions, significant lab abnormalities, going to OR and other pertinent info. @ -Discharge. 24-year-old male present emergency department with right second digit laceration. There is a skin avulsion that is not amenable to suture repair. Area was cleansed with sterile water and Betadine solution. Topical let applied. Wound was dressed. Patient is read with tetanus vaccine. Outpatient prescription for antibiotics. Return parameters discussed. Case discussed with Dr. Michel Undiagnosed new problem with uncertain prognosis? @ -No Drug Therapy requiring intensive monitoring for toxicity (Heparin, Nitro, Insulin, Cardizem)? @ -No Were any procedures done? @ -No Diagnosis/symptom? @ -skin avulsion/laceration Acute, or Chronic, or Acute on Chronic? @ -acute Uncomplicated (without systemic symptoms) or Complicated (systemic symptoms)? @ -uncomplicated Side effects of treatment? @ -No Exacerbation, Progression, or Severe Exacerbation? @ -No Poses a threat to life or bodily function? How? (Chest pain, [place], PR, pneumonia, PE, COPD, DKA, ARF, appy, cholecystitis, CVA, Diverticulitis, Homicidal, Suicidal, threat to staff... and all critical care pts) @ -No Disposition Clinical Impression: Laceration Disposition: HOME SELF-CARE Condition: Good Instructions (If sedation given, give patient instructions): Laceration (ED) Additional Instructions: Please return to the Emergency Department if symptoms worsen or any other concerns. Prescriptions: Cephalexin [Keflex] 500 mg PO Q6HR #40 cap Is patient prescribed a controlled substance at d/c from ED?: No Referrals: None,Stated [Primary Care Provider] - 1-2 days Time of Disposition: 13:36
[2024-05-30] MEDS: ACETAMINOPHEN TAB 325 MG TAB PO STA (13:24)
[2024-05-30] MEDS: DIPH,PERTUS(ACELL)TETVAC-LF 0.5 ML VIAL IM ONE (13:26)
[2024-05-30] MEDS: LIDOCAINE/EPINEPHR/TETRACAINE 5 ML BOTTLE TOPICAL ONE (13:27)
[2024-05-30 13:56] VITALS: BP 132/88; PULSE 82; TEMP 98
== END 2024-05-30 13:55 | disposition home or self-care (01) ==
LOC: EC 12:12
DX: S61.210A Laceration without foreign body of right index finger without damage to nail, initial encounter (principal); Z23 Encounter for immunization; W26.8XXA Contact with other sharp object(s), not elsewhere classified, initial encounter
CPT/HCPCS: 90471; 90715; 99282